=== PATIENT | male | born 1985 | race Caucasian/White ===

== ENCOUNTER 2016-11-18 12:38 | Emergency (ER) | payer MEDICAID ==
[2016-11-18] MEDS ORDERED: SODIUM CHLORIDE 0.9% 1,000 ML ONE (14:13)
[2016-11-18] MEDS ORDERED: ONDANSETRON 4 MG VIAL ONE (14:13)
== END 2016-11-18 15:40 | disposition home or self-care (01) ==
LOC: ER 12:38
CPT/HCPCS: 36415; 74022; 80053; 83690; 85025; 96361; 96374